=== PATIENT | male | born 1995 | race Two or more races ===

== ENCOUNTER 2024-05-01 20:19 | Emergency (ER) | payer MEDICAID, SELFPAY ==
[2024-05-01 20:20] VITALS: BMI 39.9
[2024-05-01 20:40] VITALS: BP 150/76; PULSE 120; RESP 18; TEMP 39.3; O2SAT 96
--- NOTE | 2024-05-01 21:35 | EDNOTE_ITS ---
<Statement entered by Shelby Ramos MD - 05/17/24 07:18> As co-signing physician, I was present and available for consult prn. I concur with the plan and care as documented by the midlevel provider. Upper Respiratory Inf. RME/HPI General Chief Complaint: Flu Like Symptoms Stated Complaint: Fever, cough, bodyaches, sob Time Seen by Provider: 05/01/24 20:50 Arrival date/time: 05/01/24 20:19 This is a 28-year-old male that comes in with complaints of fever, cough, body aches, shortness of breath, vomiting that started on Thursday. Patient denies past medical history. Related Data Previous Rx's ?Medication ?Instructions ?Recorded famotidine 20 mg tablet 20 mg PO QDAY #30 tabs 12/14 ondansetron HCl 4 mg tablet 4 mg PO Q8H PRN nausea and 12/14/20 (Zofran) vomiting #10 tabs ibuprofen 800 mg tablet 800 mg PO Q6H PRN pain #14 t abs 05/01/24 ondansetron 4 mg disintegrating 4 mg PO Q6H PRN nausea and 05/01/24 tablet vomiting #10 tabs Allergies Allergy/AdvReac Type Severity Reaction Status Date / Time No Known Allergies Allergy Mild Confusion Uncoded 12/14/20 13:39 Review of Systems Review of Systems Systems Reviewed: All systems reviewed, normal except as documented ED Exam General General appearance: Present alert and in no apparent distress Head Head exam: Present atraumatic Eye Eye exam: Present normal appearance, PERRL and EOMI ENT ENT exam: Present normal exam, normal oropharynx and mucous membranes moist Neck Neck exam: Present normal inspection, full ROM and trachea midline Chest Chest inspection: Present normal inspection and symmetric chest wall rise Respiratory Respiratory exam: Present normal lung sounds bilaterally Cardiovascular Cardiovascular exam: Present regular rate and normal heart sounds Abdominal Exam Abdominal exam: Present soft Extremities Exam Extremities exam: Present normal inspection and full ROM Back Exam Back exam: Present normal inspection and full ROM Neurological Exam Neurological exam: Present alert and oriented X3 Psychiatric Psychiatric exam: Present normal affect and normal mood Skin Skin exam: Present warm, dry, intact and normal color Course Quality Measures none Orders Category Date Time Status Bedside COVID-19 Antigen Test NOW Care 05/01/24 21:34 Completed Bedside Influenza A&B Antigen Test NOW Care 05/01/24 21:34 Completed Acetaminophen Tab [Tylenol ES Tab] Med 05/01/24 21:34 Discontinued 1,000 mg PO X1 ONE Ibuprofen Tab [Motrin Tab] Med 05/01/24 21:34 Discontinued 800 mg PO X1 ONE Ondansetron Odt [Zofran Odt] Med 05/01/24 21:34 Discontinued 4 mg PO X1 ONE Vital Signs Vital signs: Vital Signs Temperature 102.8 F H 05/01/24 20:40 Pulse Rate 120 H 05/01/24 20:40 Respiratory Rate 18 05/01/24 20:40 Blood Pressure 150/76 H 05/01/24 20:40 Pulse Oximetry (%) 96 05/01/24 20:40 Oxygen Delivery Method Room Air 05/01/24 20:40 Upper Respiratory Infection MDM Narrative MDM Narrative:: Pt posiitve for influenza b. Pt given zofran, tylenol, and ibuprofen. Pt encouraged to drink plenty of fluids and get plenty of rest. Follow up with primary provider in 1-2 days. Come back to ED if symptoms change or worsen. Patient data External records reviewed:: [facility] previous records Clinical information provided by:: patient Social determinants that could affect healthcare access:: none Patient has the following chronic illnesses:: none How is presenting disease/condition affected by chronic disease/condition?: no chronic disease Evaluation data The following diagnostics were reviewed and interpreted by me:: lab results Lab and/or radiology exams considered but not ordered:: none Interpretation Summary: see note Medications / Prescriptions Medications or Prescriptions considered but not ordered:: none Medication administrations:: Medication Administration History Discontinued Medications Acetaminophen (Acetaminophen 500 Mg Tablet) 1,000 mg PO X1 ONE Stop: 05/01/24 21:35 Last Admin: 05/01/24 22:06 Dose: 1,000 mg Documented By: Ibuprofen (Ibuprofen Tab 400 Mg Tablet) 800 mg PO X1 ONE Stop: 05/01/24 21:35 Last Admin: 05/01/24 22:05 Dose: 800 mg Documented By: Ondansetron HCl (Ondansetron Odt 4 Mg Tabrap) 4 mg PO X1 ONE; Protocol Stop: 05/01/24 21:35 Last Admin: 05/01/24 22:05 Dose: 4 mg Documented By: see mar Consultations Consultation(s) initiated? (list below): No Diagnosis Upper Respiratory Differential Diagnosis: upper respiratory infection, otitis media, viral infection and influenza Most likely diagnosis given after review of the tests above:: influenza b Admission Indicated Admission indicated?: not indicated Admission Request Was there a request for admission?: No Disposition Plan Disposition Plan: Discharge Discharge Attestation Discharge Attestation: The patient and all family members were given an opportunity to ask questions and understood the discharge instructions. Discharge instructions specifically effects, indications for sooner follow up or return to the emergency department, and the expected course of current diagnosis. Patient condition: Stable Discharge Plan Plan Patient Disposition: HOME (Self Care) Patient condition on transfer: Stable Prescriptions/Referrals Prescriptions/Med Rec: New ibuprofen 800 mg tablet 800 mg PO Q6H PRN (Reason: pain) Qty: 14 0RF ondansetron 4 mg tablet,disintegrating 4 mg PO Q6H PRN (Reason: nausea and vomiting) Qty: 10 0RF No Action ondansetron HCl [Zofran] 4 mg tablet 4 mg PO Q8H PRN (Reason: nausea and vomiting) Qty: 10 0RF famotidine 20 mg tablet 20 mg PO QDAY Qty: 30 0RF Referrals: Minor Cohen MD [Primary Care Provider] - In 1 week Problem List Clinical Impression: Influenza B, Vomiting Patient/Caregiver Discharge Instructions Discharge Activity: activity as tolerated Education Materials: ED Influenza (Adult), ED Vomiting (Adult) Additional Instructions: follow up with primary provider in 1-2 days. Come back to ED if symptoms change or worsen. For fever may alternate tylenol and ibuprofen. Print Language: Malaysian Stand Alone Forms: Mai Award Info., Work/School Release, Patient Portal Info Letter VENICE/CHANA Supervising Physician VENICE/CHANA Supervising Physician: matti
[2024-05-01 22:05] VITALS: TEMP 39.3
[2024-05-01] MEDS: IBUPROFEN TAB 400 MG TABLET 800 MG PO (22:05)
[2024-05-01] MEDS: ONDANSETRON ODT 4 MG TABRAP PO (22:05)
[2024-05-01 22:06] VITALS: TEMP 39.3
[2024-05-01] MEDS: ACETAMINOPHEN 500 MG TABLET 1000 MG PO (22:06)
== END 2024-05-01 22:14 | disposition home or self-care (01) ==
PROVIDERS: Emergency Provider Emergency Medicine; PCP Family Medicine
DX: J10.1 Influenza due to other identified influenza virus with other respiratory manifestations (principal)
CPT/HCPCS: 87400; 87811; 99283; Q0162; A9270